=== PATIENT | male | born 1960 | race Caucasian/White ===

== ENCOUNTER 2017-03-28 16:01 | Emergency (ER) | payer OTHER ==
[~2017-03-28] VITALS: Ht 193 cm; Wt 113.4 kg
[~2017-03-28 16:01] MED LIST: ACET-2869 PO; BUS5 PO
[2017-03-28 16:03] VITALS: BP 160/81
--- NOTE | 2017-03-28 16:11 | NUR ---
Patient to bed 12.
--- NOTE | 2017-03-28 16:20 | NUR ---
56/M PRESENT TO ER C/O 01/28 "SHARP" LOWER BACK PAIN RADIATING TO BL LEGS x 2 DAYS. HX OF CHRONIC LOWER BACK PAIN; PT DENIES ANY BOWEL OR URINE INCONTINENCE. CMS INTACT. PT IS AOX4. RR ARE EVEN AND UNLABORED. NAD. PT POSITIONED TO COMFORT, BED DOWN. AWAITING ER MD LAM. WILL CONTINUE TO MONITOR.
[2017-03-28] MEDS ORDERED: DIAZEPAM PFS 10 MG/2 ML SYR IM ONE (17:20)
[2017-03-28] MEDS ORDERED: KETOROLAC 60 MG/2 ML VIAL IM ONE (17:20)
[2017-03-28 17:58] VITALS: BP 128/61
--- NOTE | 2017-03-28 17:58 | NUR ---
Patient discharged with v/s stable. Written and verbal after care instructions given and explained. Patient alert, oriented and verbalized understanding of instructions. Ambulatory with steady gait. All questions addressed prior to discharge. ID band removed. Patient advised to follow up with PMD. Rx of Motrin, [place] #5, and Valium given. Patient educated on indication of medication including possible reaction and side effects. Opportunity to ask questions provided and answered.
== END 2017-03-28 17:58 | disposition home or self-care (01) ==
LOC: MED 16:01
DX: M54.5 Low back pain (principal)
CPT/HCPCS: 81002; 96372; 99284; J1885; J3360

== ENCOUNTER 2017-10-10 18:46 | Emergency (ER) | payer OTHER ==
[~2017-10-10] VITALS: Ht 193 cm; Wt 116.6 kg
[2017-10-10 18:56] VITALS: BP 127/1
--- NOTE | 2017-10-10 19:02 | NUR ---
Patient ambulated to rn 12 with steady gait.
--- NOTE | 2017-10-10 19:12 | NUR ---
Gave report to Ximena GOODWIN
--- NOTE | 2017-10-10 19:26 | NUR ---
PATIENT PRESENTS TO ED WITH C/O OF LEFT ARM PAIN AND NUMBNESS TINGLING FOR 3 WEEKS. PT FELL 3 WEEKS AGO. A/O X4. NO ALLERGIES. DENIES N/V/D; SKIN IS PINK/WARM/DRY. WITH EVEN AND STEADY GAIT; LUNGS CLEAR BL; HR EVEN AND REGULAR; PT DENIES ANY FEVER, CP, SOB, OR COUGH AT THIS TIME; PATIENT STATES PAIN OF 10/10 AT THIS TIME; VSS; PATIENT POSITIONED FOR COMFORT; HOB ELEVATED; BEDRAILS UP X2; BED DOWN. ER MD MADE AWARE OF PT STATUS. PT HAS HISTORY OF SLEP APNEA AND CHRONIC BACK PAIN.
--- NOTE | 2017-10-10 20:05 | NUR ---
PT WITH XRAY
[2017-10-10] MEDS ORDERED: IBUPROFEN 600 MG TAB PO ONE (21:10)
--- NOTE | 2017-10-10 21:11 | NUR ---
PT IS RESTING COMFORTABLY
--- NOTE | 2017-10-10 22:18 | NUR ---
IS WITH PATIENT
--- NOTE | 2017-10-10 22:49 | NUR ---
Note tabaudrey in EDM - 10/10/17 at 2256 by [email or web address] Patient discharged with v/s stable. Written and verbal after care instructions given and explained. Patient alert, oriented and verbalized understanding of instructions. Ambulatory with steady gait. All questions addressed prior to discharge. ID band removed. Patient advised to follow up with PMD. Rx of IBUPROFEN, KEFLEX,PEPCID,PREDNISONE given. Patient educated on indication of medication including possible reaction and side effects. Opportunity to ask questions provided and answered.
--- NOTE | 2017-10-10 22:53 | NUR ---
Patient discharged with v/s stable. Written and verbal after care instructions given and explained. Patient alert, oriented and verbalized understanding of instructions. Ambulatory with steady gait. All questions addressed prior to discharge. ID band removed. Patient advised to follow up with PMD. Rx ofIbuprofin and Ultram given. Patient educated on indication of medication including possible reaction and side effects. Opportunity to ask questions provided and answered.
[2017-10-10 22:58] VITALS: BP 144/99
== END 2017-10-10 22:53 | disposition home or self-care (01) ==
LOC: MED 18:46
DX: M79.622 Pain in left upper arm (principal); M54.12 Radiculopathy, cervical region; G89.29 Other chronic pain; M54.9 Dorsalgia, unspecified
CPT/HCPCS: 72040; 73030; 99284